=== PATIENT | female | born 1955 | race American Indian/Alaskan Native ===

== ENCOUNTER 2018-10-26 20:20 | Emergency (ER) | payer MEDICAID, OTHER ==
--- NOTE | 2018-10-26 20:57 | Emergency Department Report ---
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 Due to findings the following was ordered: UA, vaginal US ED Disposition for MSE Condition: Stable
[2018-10-26 22:01] LABS: Bacteria,Urine 1+ /HPF (Negative); Bilirubin,Urine NEG (Negative); Blood,Urine LG (Negative); Color,Urine Yellow (Yellow); Mucus,Urine FEW /HPF; Protein,Urine <15 mg/dL mg/dL (Negative); Urobilinogen,Urine < 2.0 mg/dL (<2.0)
[2018-10-26 22:03] LABS: RBC,Urine > 182.0 /HPF (0.0-6.0)
--- NOTE | 2018-10-26 22:58 | Emergency Department Report ---
ED Female HPI - General Chief complaint: Vaginal Bleeding Stated complaint: VAGINAL BLEEDING SINCE 10 23 Time Seen by Provider: 10/26/18 20:54 Source: patient Mode of arrival: Ambulatory Limitations: No Limitations, Language Barrier - History of Present Illness Initial comments: 63-year-old female with a past medical history of arthritis, hypertension, and uterine polyps presents to the hospital complains of vaginal bleeding since October 23. On average patient uses 3 pads per day and bleeding seems to have increased today. Patient denies any pain other than an intermittent cramping. Currently pain is rated level 0/10 in intensity. No aggravating or alleviating factors reported. Patient states that she began experiencing menopausal symptoms since 2010 but has some residual intermittent spotting that finally resolved after cervical/uterine polypectomy 2017. At that time patient was under [facility] care. She currently does not have a PUBLIC SPEAKING COACH doctor and is no longer with [facility]. She denies lightheadedness, fever, or syncope. - Related Data Home Medications Medication Instructions Recorded Confirmed Last Taken Etodolac 400 mg PO BID 11/20/14 11/20/14 Unknown Tramadol HCl [traMADol] 50 mg PO Q6H PRN 11/20/14 11/20/14 Unknown Allergies Allergy/AdvReac Type Severity Reaction Status Date / Time No Known Allergies Allergy Unverified 11/20/14 13:59 ED Review of Systems ROS: Stated complaint: VAGINAL BLEEDING SINCE 10 23 Other details as noted in HPI Comment: All other systems reviewed and negative ED Past Medical Hx - Past Medical History Previous Medical History?: Yes Hx Hypertension: Yes Hx Arthritis: Yes (DJD) - Surgical History Past Surgical History?: No - Social History Smoking Status: Never Smoker Substance Use Type: None - Medications Home Medications: Home Medications Medication Instructions Recorded Confirmed Last Taken Type Etodolac 400 mg PO BID 11/20/14 11/20/14 Unknown History Tramadol HCl [traMADol] 50 mg PO Q6H PRN 11/20/14 11/20/14 Unknown History ED Physical Exam - General Limitations: No Limitations, Language Barrier - Other Other exam information: General: No limitations, patient is alert in no acute distress Head exam: Atraumatic, normocephalic Eyes exam: Normal appearance ENT: Moist mucous membrane, normal oropharynx Neck exam: Normal inspection, full range of motion, no meningismus nontender Respiratory exam: Clear to auscultation bilateral, no wheezes, rales, crackles Cardiovascular: Normal rate and rhythm, normal heart sounds Abdomen: Soft, nondistended, and nontender, with normal bowel sounds, no rebound, or guarding Extremity: Full range of motion normal inspection no deformity Back: Normal Inspection, full range of motion, no tenderness Neurologic: Alert, oriented x3, cranial nerves intact, no motor or sensory deficit Psychiatric: normal affect, normal mood Skin: Warm, dry, intact ED Course Vital Signs 10/26/18 10/26/18 20:52 23:39 Temperature 98.4 F Pulse Rate 82 64 Respiratory 16 18 Rate Blood Pressure 192/81 Blood Pressure 151/73 [Right] O2 Sat by Pulse 100 97 Oximetry ED Medical Decision Making - Lab Data Result diagrams: 10/26/18 23:01 10/26/18 23:01 Lab Results 10/26/18 10/26/18 10/26/18 Range/Units 21:08 23:01 23:01 WBC 6.3 (4.5-11.0) K/mm3 RBC 4.35 (3.65-5.03) M/mm3 Hgb 14.1 (10.1-14.3) gm/dl Hct 42.1 (30.3-42.9) % MCV 97 (79-97) fl MCH 32 (28-32) pg MCHC 34 (30-34) % RDW 15.1 (13.2-15.2) % Plt Count 191 (140-440) K/mm3 Lymph % (Auto) 27.1 (13.4-35.0) % Emanuel % (Auto) 6.8 (0.0-7.3) % Eos % (Auto) 1.9 (0.0-4.3) % Baso % (Auto) 0.7 (0.0-1.8) % Lymph # 1.7 (1.2-5.4) K/mm3 Emanuel # 0.4 (0.0-0.8) K/mm3 Eos # 0.1 (0.0-0.4) K/mm3 Baso # 0.0 (0.0-0.1) K/mm3 Seg Neutrophils % 63.5 (40.0-70.0) % Seg Neutrophils # 4.0 (1.8-7.7) K/mm3 Sodium 138 (137-145) mmol/L Potassium 4.6 (3.6-5.0) mmol/L Chloride 101.3 (98-107) mmol/L Carbon Dioxide 24 (22-30) mmol/L Anion Gap 17 mmol/L BUN 22 H (7-17) mg/dL Creatinine 0.8 (0.7-1.2) mg/dL Estimated GFR > 60 ml/min BUN/Creatinine Ratio 28 % Glucose 103 H (65-100) mg/dL Calcium 9.4 (8.4-10.2) mg/dL Urine Color Yellow (Yellow) Urine Turbidity Clear (Clear) Urine pH 6.0 (5.0-7.0) Ur Specific [place] 1.021 (1.003-1.030) Urine Protein <15 mg/dl (Negative) mg/dL Urine Glucose (UA) Neg (Negative) mg/dL Urine Ketones Neg (Negative) mg/dL Urine Blood Lg (Negative) Urine Nitrite Neg (Negative) Urine Bilirubin Neg (Negative) Urine Urobilinogen < 2.0 (<2.0) mg/dL Ur Leukocyte Esterase Neg (Negative) Urine WBC (Auto) 2.0 (0.0-6.0) /HPF Urine RBC (Auto) > 182.0 (0.0-6.0) /HPF U Epithel Cells (Auto) 1.0 (0-13.0) /HPF Urine Bacteria (Auto) 1+ (Negative) /HPF Urine Mucus Few /HPF - Radiology Data Radiology results: report reviewed PROCEDURE: US PELVIC COMPLETE TECHNIQUE: Real-time transabdominal sonography in multiple planes of the pelvis was performed. The pelvic structures were not optimally visualized. Transvaginal sonography was then performed to better evaluate the structures and/or abnormalities described below with image documentation. Grayscale, color flow Doppler imaging, and velocity spectral waveform analysis of the ovaries was employed (duplex imaging). HISTORY: vaginal bleeding COMPARISONS: None . FINDINGS: UTERUS Size: 7.9 x 5.3 x 5.8 cm. Endometrial thickness: 6.8 mm. Orientation: anteverted. Cervix: Normal. Fibroids/masses: There is a posterior fibroid measuring 4 cm.. RIGHT Ovary: 1.8 x 1 x 1.5 cm. Appearance: There is a 7 mm cystic follicle.. Doppler images: Normal spectral waveforms and color flow images of the arterial inflow and venous outflow.. LEFT Ovary: The left ovary is not identified. Pelvic fluid: None. IMPRESSION: There is a posterior fibroid measuring 4 cm.. There is no right ovarian torsion. The left ovary is not identified. There is no free pelvic fluid. PROCEDURE: US TRANSVAGINAL TECHNIQUE: Real-time transabdominal sonography in multiple planes of the pelvis was performed. The pelvic structures were not optimally visualized. Transvaginal sonography was then performed to better evaluate the structures and/or abnormalities described below with image documentation. Grayscale, color flow Doppler imaging, and velocity spectral waveform analysis of the ovaries was employed (duplex imaging). HISTORY: vaginal bleeding COMPARISONS: None . FINDINGS: UTERUS Size: 7.9 x 5.3 x 5.8 cm. Endometrial thickness: 6.8 mm. Orientation: anteverted. Cervix: Normal. Fibroids/masses: There is a posterior fibroid measuring 4 cm.. RIGHT Ovary: 1.8 x 1 x 1.5 cm. Appearance: There is a 7 mm cystic follicle.. Doppler images: Normal spectral waveforms and color flow images of the arterial inflow and venous outflow.. LEFT Ovary: The left ovary is not identified. Pelvic fluid: None. IMPRESSION: There is a posterior fibroid measuring 4 cm.. There is no right ovarian torsion. The left ovary is not identified. There is no free pelvic fluid. 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 ED Disposition Clinical Impression: Postmenopausal vaginal bleeding, Urinary incontinence Disposition: DC-01 TO HOME OR SELFCARE Is pt being admited?: No Does the pt Need Aspirin: No Condition: Stable Instructions: Dysfunctional Uterine Bleeding (ED) Additional Instructions: Take Motrin or Tylenol as needed for pain. Follow up with your doctor or the cl inic/doctor provided. Return if symptoms worsen as indicated by your discharge instructions. It is very important to follow-up with the PUBLIC SPEAKING COACH doctor for further evaluation of your postmenopausal bleeding to ensure that you do not have endometrial cancer. Referrals: CON PINON MD [Staff Physician] - 3-5 Days (urologist ) KAY SAINI MD [Staff Physician] - 3-5 Days (primary care doctor ) JENNYFER FERNANDEZ MD [Staff Physician] - 3-5 Days (PUBLIC SPEAKING COACH doctor) Time of Disposition: 03:16
[2018-10-26 23:10] LABS: Basophils % (Auto) 0.7 % (0.0-1.8); Eosinophils # (Auto) 0.1 K/mm3 (0.0-0.4); Eosinophils % (Auto) 1.9 % (0.0-4.3); Hematocrit 42.1 % (30.3-42.9); Hemoglobin 14.1 gm/dl (10.1-14.3); Lymphocytes # (Auto) 1.7 K/mm3 (1.2-5.4); Lymphocytes % (Auto) 27.1 % (13.4-35.0); Mean Corpuscular HGB Conc 34 % (30-34); Mean Corpuscular Volume 97 fl (79-97); Monocytes # (Auto) 0.4 K/mm3 (0.0-0.8); Monocytes % (Auto) 6.8 % (0.0-7.3); Platelet Count 191 K/mm3 (140-440); Red Blood Count 4.35 M/mm3 (3.65-5.03); Red Cell Distribution Width 15.1 % (13.2-15.2)
[2018-10-26 23:26] LABS: BUN/Creatinine Ratio 28; Blood Urea Nitrogen 22 mg/dL (7-17); Calcium 9.4 mg/dL (8.4-10.2); Hemolysis Index 16
--- NOTE | 2018-10-27 02:55 | Ultrasound Report ---
PROCEDURE: US PELVIC COMPLETE TECHNIQUE: Real-time transabdominal sonography in multiple planes of the pelvis was performed. The p elvic structures were not optimally visualized. Transvaginal sonography was then performed to better evaluate the structures and/or abnormalities described below with image documentation. Grayscale, col or flow Doppler imaging, and velocity spectral waveform analysis of the ovaries was employed (duplex imaging). HISTORY: vaginal bleeding COMPARISONS: None . FINDINGS: UTERUS Size: 7.9 x 5.3 x 5.8 cm. Endometrial thickness: 6.8 mm. Orientation: anteverted. Cervix: Normal. Fibroids/masses: There is a posterior fibroid measuring 4 cm.. RIGHT Ovary: 1.8 x 1 x 1.5 cm. Appearance: There is a 7 mm cystic follicle.. Doppler images: Normal spectral waveforms and color flow images of the arterial inflow and venous out flow.. LEFT Ovary: The left ovary is not identified. Pelvic fluid: None. IMPRESSION: There is a posterior fibroid measuring 4 cm.. There is no right ovarian torsion. The left ovary is not identified. There is no free pelvic fluid. This document is electronically signed by Kenn Soto MD., October 27 2018 02:53:43 AM ET
[2018-10-27 03:25] VITALS: BP 160/73
== END 2018-10-27 03:32 | disposition home or self-care (01) ==
LOC: ED 20:20
DX: N95.8 Other specified menopausal and perimenopausal disorders (principal); N93.9 Abnormal uterine and vaginal bleeding, unspecified; R32 Unspecified urinary incontinence; I10 Essential (primary) hypertension; M19.90 Unspecified osteoarthritis, unspecified site
CPT/HCPCS: 36415; 76830; 76856; 80048; 81001; 85025